=== PATIENT | female | born 1990 | race Caucasian/White ===

== ENCOUNTER 2020-01-11 02:38 | Emergency (ER) | payer SELFPAY ==
[2020-01-11 03:26] LABS: ABSOLUTE EOSINOPHILS # (AUTO) 0.1 10^3/uL (0.0-0.6); ABSOLUTE MONOCYTES (AUTO) 0.5 10^3/uL (0.1-1.4); BASOPHILS % (AUTO) 0.6 % (0-2); EOSINOPHILS % (AUTO) 1.3 % (0-6); HEMATOCRIT 38.4 % (36.0-47.0); HEMOGLOBIN 13.2 g/dL (12.0-15.5); LYMPHOCYTES % (AUTO) 26.1 % (13-45); MEAN CORPUSCULAR HEMOGLOBIN 32.9 pg (27.0-33.4); MEAN CORPUSCULAR HGB CONC 34.5 g/dL (32.0-36.0); MEAN CORPUSCULAR VOLUME 95 fl (80-97); MONOCYTES % (AUTO) 6.1 % (3-13); PLATELET COUNT 209 10^3/uL (150-450); RED BLOOD COUNT 4.02 10^6/uL (3.72-5.28); RED CELL DISTRIBUTION WIDTH 12.7 % (11.5-14.0); SEGMENTED NEUTROPHILS % (AUTO) 65.9 % (42-78); TOTAL CELLS COUNTED % (AUTO) 100 %; WHITE BLOOD COUNT 7.6 10^3/uL (4.0-10.5)
[2020-01-11 03:41] LABS: ACETAMINOPHEN 39 ug/mL (10-30); ALCOHOL 210 mg/dL (NONE DETECTED); ALKALINE PHOSPHATASE 51 U/L (38-126); ANION GAP 10 (5-19); ASPARTATE AMINO TRANSFERASE 29 U/L (14-36); BILIRUBIN,DIRECT 0.2 mg/dL (0.0-0.4); BILIRUBIN,TOTAL 0.7 mg/dL (0.2-1.3); BLOOD UREA NITROGEN 11 mg/dL (7-20); CALCIUM 8.5 mg/dL (8.4-10.2); CARBON DIOXIDE 24 mmol/L (22-30); CHLORIDE 109 mmol/L (98-107); GLUCOSE 112 mg/dL (75-110); POTASSIUM 3.7 mmol/L (3.6-5.0); TOTAL PROTEIN 6.3 g/dL (6.3-8.2)
[2020-01-11 03:42] LABS: SALICYLATE < 1.0 mg/dL (2.0-20.0)
[2020-01-11] MEDS ORDERED: MIDAZOLAM 2 MG/2 ML INJ IV ONE (06:06)
[2020-01-11 06:27] LABS: APPEARANCE,URINE SLIGHTLY-CLOUDY; BILIRUBIN,URINE NEGATIVE (NEGATIVE); COLOR,URINE STRAW; GLUCOSE, URINE NEGATIVE (NEGATIVE); KETONES,URINE NEGATIVE (NEGATIVE); LEUKOCYTE ESTERASE,URINE NEGATIVE (NEGATIVE); NITRITE,URINE NEGATIVE (NEGATIVE); PROTEIN,URINE NEGATIVE (NEGATIVE); URINE SPECIFIC GRAVITY 1.003; UROBILINOGEN,URINE NEGATIVE mg/dL (<2.0)
[2020-01-11 06:40] LABS: URINE AMPHETAMINES SCREEN NEGATIVE; URINE BARBITURATES SCREEN NEGATIVE; URINE BENZODIAZEPINES SCREEN NEGATIVE; URINE COCAINE SCREEN NEGATIVE; URINE MARIJUANA (THC) SCREEN NEGATIVE; URINE METHADONE SCREEN NEGATIVE; URINE PHENCYCLIDINE SCREEN NEGATIVE
--- NOTE | 2020-01-11 07:40 | ER Document Report ---
ED General <NITHIN ALFORD - Last Filed: 01/11/20 07:35> <CHEYANNE ZUÑIGA - Last Filed: 01/11/20 16:51> <EMEKA MURRAY - Last Filed: 01/11/20 18:35> - General Chief Complaint: Possible Overdose Stated Complaint: POSSIBLE OVERDOSE Primary Care Provider: [facility] [Outside] - Follow up as needed Notes: 29-year-old female history of prior substance abuse in remission as per friend presents with possible suicide attempt. Friend states that patient had fight with boyfriend and then locked friends at his house out of house and took possible ingestion of promethazine and Tylenol just prior to arrival. Patient was very combative with EMS and ketamine was given prior to arrival. Unable to obtain additional history given sedation. (ALFORDNITHIN) Past Medical History - General Information source: Friend - Social History Smoking Status: Unknown if Ever Smoked Family History: Other - Unable to assess secondary to altered mental status <FAIZA ALFORDRA Stanford - Last Filed: 01/11/20 07:35> - General Information source: Emergency Med Personnel - history obtained from [facility] Cannot obtain history due to: Dementia - Social History Smoking Status: Unknown if Ever Smoked Family History: Other <EMEKA MURRAY - Last Filed: 01/11/20 18:35> Review of Systems - Review of Systems -: Yes ROS unobtainable due to patient's medical condition <NITHIN ALFORD - Last Filed: 01/11/20 07:35> Physical Exam <FAIZA ALFORDRA Stanford - Last Filed: 01/11/20 07:35> - Vital signs Vitals: Resp BP Pulse Ox 15 120/84 100 01/11/20 02:45 01/11/20 02:45 01/11/20 02:45 - Notes Notes: PHYSICAL EXAMINATION: GENERAL: Well-very sedated young adult female in no acute distress HEAD: Atraumatic, normocephalic. EYES: Pupils equal round and appropriate constriction, sclera anicteric, conjunctiva are normal. ENT: nares patent, moist mucous membranes. NECK: Normal range of motion, supple without lymphadenopathy LUNGS: Breath sounds clear to auscultation bilaterally and equal. No wheezes rales or rhonchi. HEART: Regular rate and rhythm without murmurs ABDOMEN: Soft, nontender, no guarding, no masses, no CVAT EXTREMITIES: Normal range of motion, no pitting or edema. No cyanosis. NEUROLOGICAL: Sedated, responsive to painful stimuli, moves all extremities spontaneously SKIN: Warm, Dry, normal turgor, no rashes or lesions noted. (NITHIN ALFORD) Course - Laboratory Result Diagrams: 01/11/20 03:00 01/11/20 03:00 <NITHIN ALFORD - Last Filed: 01/11/20 07:35> - Laboratory Result Diagrams: 01/11/20 03:00 01/11/20 03:00 <CHEYANNE ZUÑIGA - Last Filed: 01/11/20 16:51> - Laboratory Result Diagrams: 01/11/20 03:00 01/11/20 03:00 <EMEKA MURRAY - Last Filed: 01/11/20 18:35> - Re-evaluation Re-evalutation: 01/11/20 07:38 Possible promethazine and Tylenol ingestion and suicide attempt. Given patient sedation prior to arrival unable to obtain history from patient. Patient awoke from sedation in ED but was combative and additional sedation was given. Patient Tylenol level on arrival and 4-hour Tylenol below treatment threshold given Sherrill-Jay normogram. Patient's clinical status appropriate for alcohol level of 210, no signs of trauma on head to toe fully undressed trauma evaluation, no indication for neuroimaging at this time. Patient turned [facility] to [facility] pending reassessment upon sobriety and psych consult. (NITHIN ALFORD) 01/11/20 16:24 Patient was reevaluated. States that last night she was drinking and got upset with her boyfriend so she grabbed a handful of Tylenol and swallowed it. She states she does have a history of suicidal ideations, but no active plan or intent.. Denies any previous suicide attempts. Currently denies suicidal ideations. Believes she was trying to spite him which is why she took the Tylenol. She believes her about 5 or 6 pills as athe bottle was fairly empty. She denies any current complaints at this time. Patient's labs have been reviewed. Her EKG is also reviewed. I do not see a reason for any imaging or additional labs at this time. 01/11/20 16:27 Her acetaminophen level has trended down. Patient is medically cleared. She has been cleared from psych. I will discharge the patient. Patient can follow up to the emergency department if she has worsening symptoms or the development of new symptoms. (EMEKA MURRAY) - Vital Signs Vital signs: Temp Pulse Resp BP Pulse Ox 98.2 F 78 16 128/72 H 100 01/11/20 08:00 01/11/20 08:00 01/11/20 08:00 01/11/20 08:00 01/11/20 08:00 - Laboratory Laboratory results interpreted by me: 01/11/20 01/11/20 03:00 06:11 Chloride 109 H Glucose 112 H Urine Blood LARGE H Salicylates < 1.0 L Acetaminophen 39 H Discharge <NITHIN ALFORD - Last Filed: 01/11/20 07:35> <CHEYANNE ZUÑIGA - Last Filed: 01/11/20 16:51> <EMEKA MURRAY - Last Filed: 01/11/20 18:35> - Discharge Clinical Impression: Overdose Qualifiers: Encounter type: initial encounter Injury intent: intentional self-harm Qualified Code(s): T50.902A - Poisoning by unspecified drugs, medicaments and biological substances, intentional self-harm, initial encounter Alcohol intoxication Qualifiers: Complication of substance-induced condition: uncomplicated Qualified Code(s): F10.920 - Alcohol use, unspecified with intoxication, uncomplicated Condition: Stable Disposition: HOME, SELF-CARE Additional Instructions: You have been evaluated both medical and behavioral health teams and been deemed appropriate for discharge. You are highly encouraged to refrain from drinking alcohol. Please follow-up with outpatient mental health provider for therapy; you have been provided local resource list of area providers including mobile crisis contact information. A referral for community paramedics has been submitted for you. ACUTE ALCOHOL INTOXICATION and ALCOHOL ABUSE: Your evaluation revealed very high levels of alcohol. You can from drinking a large amount of alcohol rapidly! Further, there's the risk of falls, traffic accidents, and fights. A high portion (about 50 percent) of the serious injuries seen in hospital emergency rooms are caused by alcohol. Alcohol overdosage is usually due to an underlying emotional or psychiatric problem. You may benefit from counselling. If "binge" drinking is an ongoing problem for you, or if you drink ANY AMOUNT of alcohol EVERY day, you most likely have a tendency to alcoholism. You should avoid alcohol totally. We can refer you for treatment. Persons with alcohol problems are often also prone to other addictions -- you should discuss any use of medications or drugs with the doctor. You should be watched at home for the next several hours by someone who has not been drinking. Get extra fluids for the next 24 hours. Call the doctor if there is repeated vomiting, increasing headache, decreasing level of alertness, or any other worsening. ALCOHOL WITHDRAWAL: Your symptoms are caused by alcohol withdrawal. After a period of frequent drinking, the brain and body are changed by the alcohol. When you quit or reduce your drinking, the nervous system becomes unstable. Withdrawal symptoms can start a few hours after your last drink, but sometimes don't begin until a couple of days later. Symptoms can include shakiness, sweating, insomnia, nausea, vomiting, fearfulness, hallucinations, and seizures. In addition to the acute effects of alcohol withdrawal, we often have to deal with the medical effects of alcoholism. These problems often include dehydration, stomach irritation, intestinal bleeding, low blood sugar, liver disease, and pancreas inflammation. Treatment for alcohol withdrawal includes mild sedatives, vitamins, and fluids. You need to be with someone who can help if symptoms become severe. Many patients can withdraw at home. Admission to the hospital or a detox facility may be necessary if withdrawal symptoms are severe and uncontrollable. Abstaining from alcohol is the only effective long-term treatment. If you start drinking again, you will not be able to control yourself after the first drink. Treatment programs are available. In addition, many alcoholics benefit from Alcoholics Anonymous or other support groups available through your coun selor or religion pricing manager. [employer] and [employer] are support groups for friends and family members of an alcoholic. Go to the emergency room if you develop persistent vomiting, severe abdominal pain, fever, shortness of breath, hallucinations, uncontrollable tremors, or seizures. DEPRESSION: Your evaluation reveals that you have mental depression. While symptoms may be vague, they often include disturbance of sleep, fatigue, loss of appetite, and general loss of interest in life. While depression may be a side effect of drugs, or a reaction to a major change in your life, many cases have no known cause. If depression is acute, and related to a major loss in your life, you can expect it to clear completely with time. If you have been depressed a long time, are prone to repeated bouts of depression or low mood, or have been thinking of suicide, get help. Depression can be treated with anti-depressant medication and counselling. Long-term depression will often take a few weeks to clear, even with appropriate medication. Follow-up care is important. SUICIDAL IDEATION: Suicidal ideation is a common medical term for thoughts about suicide, which may be as detailed as a formulated plan, without the suicidal act itself. Although most people who undergo suicidal ideation do not commit suicide, some go on to make suicide attempts. The range of suicidal ideation varies greatly from fleeting to detailed planning, role playing, and unsuccessful attempts. While thoughts about suicide are common, most people do not carry out serious actions to commit suicide. Based upon your evaluation and discussion with you, we do not believe you are currently at risk to act upon your thoughts of suicide. You have agreed to return to the Emergency Department, at any time, if you feel inclined to act upon your suicidal thoughts. FOLLOW-UP CARE: If you have been referred to a physician for follow-up care, call the physicians office for an appointment as you were instructed or within the next two days. If you experience worsening or a significant change in your symptoms, notify the physician immediately or return to the Emergency Department at any time for re-evaluation. FOLLOW-UP CARE: If you have been referred to a physician for follow-up care, call the physicians office for an appointment as you were instructed or within the next two days. If you experience worsening or a significant change in your symptoms, notify the physician immediately or return to the Emergency Department at any time for re-evaluation. Referrals: [facility] [Outside] - Follow up as needed
--- NOTE | 2020-01-11 09:09 | EKG REPORT ---
SEVERITY:- BORDERLINE ECG - SINUS RHYTHM PROBABLE LEFT ATRIAL ABNORMALITY BORDERLINE T ABNORMALITIES, INFERIOR LEADS : Confirmed by: Lisa Mccartney 11-Jan-2020 09:08:51
--- NOTE | 2020-01-11 16:58 | PSYCHOLOGICAL NOTE ---
Psych Note - Psych Note Date seen by psych provider: 01/11/20 Time seen by psych provider: 12:00 Psych Note: Reason for Consult: Overdose Impression/Plan: Patient is cleared from acute psychiatric services. Patient is currently not under involuntary commitment petition as paperwork was incomplete. Patient engaged in maladaptive coping skill self-harm while under the influence of alcohol. Patient admits to getting into an argument with her boyfriend and "I wanted to hurt him." Patient's sister agrees to be part of plan of care. Patient is recommended to abstain from alcohol; patient has a history of substance abuse and admits to increased alcohol consumption. Patient identified healthy positive coping skills to replace drinking alcohol and self-harm such as exercising. Patient is recommended to follow-up with therapeutic services and has been provided local resource list of area providers. Patient also has an active referral with community paramedics that will be making contact with the patient for continued assistance. Dr. Patel was consulted to care management this patient; tending physicians in agreement with recommendations and disposition.
[2020-01-11 18:35] VITALS: BP 121/75
== END 2020-01-11 18:35 | disposition home or self-care (01) ==
LOC: ER 02:38
DX: T39.1X2A Poisoning by 4-Aminophenol derivatives, intentional self-harm, initial encounter (principal); Y92.009 Unspecified place in unspecified non-institutional (private) residence as the place of occurrence of the external cause; F10.120 Alcohol abuse with intoxication, uncomplicated; Y90.7 Blood alcohol level of 200-239 mg/100 ml
CPT/HCPCS: 93005; 99285; 96374; 36415; 80307 ×4; 84703; 85025; 80053; 81001; 93010; J2250